=== PATIENT | male | born 1945 | race African-American/Black ===

== ENCOUNTER 2019-07-13 20:51 | Inpatient (IN) | payer MEDICARE, MEDICAID ==
[~2019-07-13] VITALS: Ht 188 cm; Wt 71.4 kg
[2019-07-13 21:00] VITALS: BP 177/76
[2019-07-13] MEDS ORDERED: CARVEDILOL25 MG ORAL (21:15)
[2019-07-13] MEDS ORDERED: ASPIRIN325 MG ORAL (21:15)
[2019-07-13] MEDS ORDERED: ATORVASTATIN CA40 MG ORAL (21:15)
--- NOTE | 2019-07-13 21:15 | NUR ---
ED Nurse Note: Pt brought in by prema from [place] [facility] with c/o SOB with fevers x 1 day. pt denies any pain. temp 98.6 at bedside. vss, nad aaox4, nonambulatory. pt placed in isolation room, gowned and cleaned. no wound noted. pt SpO2 at 98% RA. IV established and blood drawn. covid swab and flu swab collected and sent to lab. urine collected and sent to lab. EKG done at bedside. XR done at bedside. Will continue to monitor patient.
--- NOTE | 2019-07-13 22:01 | Emergency Room Report ---
History of Present Illness General Chief Complaint: Fever Source: Patient, EMS Present Illness HPI 73-year-old male presents ED for evaluation of cough and fever. Noted by nursing staff. Patient resides in senior living facility. Symptoms noticed today. Patient denies any shortness of breath. Afebrile in triage. Patient EMS patient resides in facility with multiple COVID positive patients. No other aggravating relieving factors. Denies any other associated symptoms Allergies: Coded Allergies: No Known Allergies (Unverified , 07/13/19) COVID-19 Screening Contact w/high risk pt: Yes Recent Travel to affected area: No Experienced COVID-19 symptoms?: Yes COVID-19 symptoms experienced: Fever (T>100.4F or >38C), Cough Patient History Pertinent Family History: none Social History: Denies: smoking, alcohol use, drug use Immunizations: UTD Reviewed Nursing Documentation: PMH: Agreed; PSxH: Agreed Nursing Documentation-PMH Hx Cardiac Problems: Yes Hx Hypertension: Yes Hx COPD: Yes Hx Cerebrovascular Accident: Yes Review of Systems All Other Systems: negative except mentioned in HPI Physical Exam Vital Signs Date Time Temp Pulse Resp B/P (MAP) Pulse Ox O2 Delivery O2 Flow Rate FiO2 07/13/19 20:55 97.7 68 18 174/81 (112) 98 Room Air Sp02 EP Interpretation: reviewed, normal General Appearance: no apparent distress, alert, GCS 15, non-toxic, thin Head: normocephalic, atraumatic Eyes: bilateral eye normal inspection, bilateral eye PERRL ENT: hearing grossly normal, normal pharynx, no angioedema, normal voice Neck: full range of motion, supple/symm/no masses Respiratory: chest non-tender, lungs clear, normal breath sounds, speaking full sentences Cardiovascular #1: regular rate, rhythm, no edema Cardiovascular #2: 2+ carotid (R), 2+ carotid (L), 2+ radial (R), 2+ radial (L) , 2+ dorsalis pedis (R), 2+ dorsalis pedis (L) Gastrointestinal: normal bowel sounds, non tender, soft, non-distended, no guarding, no rebound Rectal: deferred Genitourinary: normal inspection, no CVA tenderness Musculoskeletal: back normal, normal range of motion, gait/station normal, non- tender Neurologic: alert, motor strength/tone normal, oriented x3, sensory intact, responsive, speech normal Psychiatric: judgement/insight normal, memory normal, mood/affect normal, no suicidal/homicidal ideation Reflexes: 3+ bicep (R), 3+ bicep (L), 3+ tricep (R), 3+ tricep (L), 3+ knee (R) , 3+ knee (L) Skin: other - see nursing skin notes Lymphatic: no adenopathy Medical Decision Making Diagnostic Impression: Primary Impression: Fever Qualified Codes: R50.9 - Fever, unspecified Additional Impression: Weakness ER Course Hospital Course 73 yo M presents with reported fever, SOB, cough Differential diagnoses include: Pneumonia, CHF exacerbation, pneumothorax, fluid overload Clinical course Patient placed on stretcher. Isolation. I wore full PPE. After initial history and physical, I ordered labs, IV fluids, EKG, chest x-ray, blood cultures, UA. Patient not hypoxic. Not actively coughing. Labs - no leukocytosis, hemoglobin/hematocrit stable, Na 149, lactate 1.6, troponins negative , UA negative EKG - NSr, no acute ischemic changes interpreted by me CXR - no focal consolidation, some venous congestion COVID swab sent Patient resting comfortably on room air. No signs of distress. antibiotics given. IV fluids given. Case discussed with Dr. Rosales and he agreed to the patient to his service for further care and support I feel this is a highly complex case requiring extensive working including EKG/ Rhythm strip, Xray/CT/US, Blood/urine lab work, repeat exams while in ED, and administration of strong opiates/narcotics for pain control, admission to hospital or close patient follow up. Diagnosis - fever, weakness Patient admitted to telemetry in serious condition Labs Test 07/13/19 21:50 White Blood Count 6.9 K/UL (4.8-10.8) Red Blood Count 4.56 M/UL (4.70-6.10) Hemoglobin 14.1 G/DL (14.2-18.0) Hematocrit 43.8 % (42.0-52.0) Mean Corpuscular Volume 96 FL (80-99) Mean Corpuscular Hemoglobin 30.9 PG (27.0-31.0) Mean Corpuscular Hemoglobin Concent 32.2 G/DL (32.0-36.0) Red Cell Distribution Width 14.4 % (11.6-14.8) Platelet Count 170 K/UL (150-450) Mean Platelet Volume 8.8 FL (6.5-10.1) Neutrophils (%) (Auto) 51.5 % (45.0-75.0) Lymphocytes (%) (Auto) 32.3 % (20.0-45.0) Monocytes (%) (Auto) 9.2 % (1.0-10.0) Eosinophils (%) (Auto) 5.1 % (0.0-3.0) Basophils (%) (Auto) 2.0 % (0.0-2.0) Urine Color Yellow Urine Appearance Clear Urine pH 6 (4.5-8.0) Urine Specific [place] 1.020 (1.005-1.035) Urine Protein Negative (NEGATIVE) Urine Glucose (UA) Negative (NEGATIVE) Urine Ketones Negative (NEGATIVE) Urine Blood Negative (NEGATIVE) Urine Nitrite Negative (NEGATIVE) Urine Bilirubin Negative (NEGATIVE) Urine Urobilinogen 1 MG/DL (0.0-1.0) Urine Leukocyte Esterase Negative (NEGATIVE) Sodium Level 149 MMOL/L (136-145) Potassium Level 4.3 MMOL/L (3.5-5.1) Chloride Level 111 MMOL/L (98-107) Carbon Dioxide Level 26 MMOL/L (21-32) Anion Gap 12 mmol/L (5-15) Blood Urea Nitrogen 18 mg/dL (7-18) Creatinine 1.2 MG/DL (0.55-1.30) Estimat Glomerular Filtration Rate > 60 mL/min (>60) Glucose Level 97 MG/DL (74-106) Lactic Acid Level 1.60 mmol/L (0.4-2.0) Calcium Level 9.3 MG/DL (8.5-10.1) Total Bilirubin 0.5 MG/DL (0.2-1.0) Aspartate Amino Transf (AST/SGOT) 37 U/L (15-37) Alanine Aminotransferase (ALT/SGPT) 80 U/L (12-78) Alkaline Phosphatase 119 U/L (46-116) Troponin I 0.007 ng/mL (0.000-0.056) Pro-B-Type Natriuretic Peptide 255 pg/mL (0-125) Total Protein 7.6 G/DL (6.4-8.2) Albumin 3.9 G/DL (3.4-5.0) Globulin 3.7 g/dL Albumin/Globulin Ratio 1.1 (1.0-2.7) EKG Diagnostic Results Rate: normal Rhythm: NSR ST Segments: no acute changes ASA given to the pt in ED: No Rhythm Strip Diag. Results EP Interpretation: yes Rhythm: NSR, no PVC's, no ectopy Chest X-Ray Diagnostic Results Chest X-Ray Diagnostic Results : Chest X-Ray Ordered: Yes # of Views/Limited/Complete: 1 View Indication: Shortness of Breath EP Interpretation: Yes Interpretation: no consolidation, no effusion, no pneumothorax, no acute cardiopulmonary disease - c, other - vascular congestion Impression: No acute disease Electronically Signed by: Electronically signed by Cassius Wong MD Last Vital Signs Date Time Temp Pulse Resp B/P (MAP) Pulse Ox O2 Delivery O2 Flow Rate FiO2 07/13/19 20:55 97.7 68 18 174/81 (112) 98 Room Air Status: improved Disposition: ADMITTED INPATIENT Condition: Serious Referrals: Jaskaran Rosales MD (PCP) Cassius Wong MD Jul 13, 2019 22:01
[2019-07-13 22:02] LABS: APPEARANCE,URINE CLEAR; BILIRUBIN, URINE NEGATIVE (NEGATIVE); GLUCOSE, URINE (UA) NEGATIVE (NEGATIVE); KETONES,URINE NEGATIVE (NEGATIVE); LEUKOCYTE ESTERASE ,URINE NEGATIVE (NEGATIVE); NITRITE,URINE NEGATIVE (NEGATIVE); PH,URINE 6 (4.5-8.0); PROTEIN,URINE NEGATIVE (NEGATIVE); UROBILINOGEN,URINE 1 MG/DL (0.0-1.0)
[2019-07-13 22:03] LABS: EOSINOPHILS % (AUTO) 5.1 % (0.0-3.0); HEMATOCRIT 43.8 % (42.0-52.0); HEMOGLOBIN 14.1 G/DL (14.2-18.0); LYMPHOCYTES % (AUTO) 32.3 % (20.0-45.0); MEAN CORPUSCULAR VOLUME 96 FL (80-99); MONOCYTES % (AUTO) 9.2 % (1.0-10.0); NEUTROPHILS % (AUTO) 51.5 % (45.0-75.0); PLATELET COUNT 170 K/UL (150-450); RED BLOOD COUNT 4.56 M/UL (4.70-6.10); RED CELL DISTRIBUTION WIDTH 14.4 % (11.6-14.8); WHITE BLOOD COUNT 6.9 K/UL (4.8-10.8)
[2019-07-13 22:04] LABS: COLOR,URINE YELLOW
--- NOTE | 2019-07-13 22:06 | Diagnostic Imaging Report ---
EXAM: XR Chest, 1 View CLINICAL HISTORY: SOB TECHNIQUE: Frontal view of the chest. COMPARISON: No relevant prior studies available. FINDINGS: Lungs: No consolidation. Pulmonary venous congestion. Pleural space: No pleural effusion. No pneumothorax. Heart: Unremarkable. No cardiomegaly. IMPRESSION: Pulmonary venous congestion. No consolidation.
[2019-07-13 22:18] LABS: ANION GAP 12 mmol/L (5-15); BLOOD UREA NITROGEN 18 mg/dL (7-18); CALCIUM 9.3 MG/DL (8.5-10.1); CARBON DIOXIDE 26 MMOL/L (21-32); CHLORIDE 111 MMOL/L (98-107); CREATININE 1.2 MG/DL (0.55-1.30); POTASSIUM 4.3 MMOL/L (3.5-5.1); SODIUM 149 MMOL/L (136-145)
[2019-07-13 22:29] LABS: ALANINE AMINOTRANSFERASE 80 U/L (12-78); ALBUMIN 3.9 G/DL (3.4-5.0); ALBUMIN/GLOBULIN RATIO 1.1 (1.0-2.7); ALKALINE PHOSPHATASE 119 U/L (46-116); ASPARTATE AMINO TRANSFERASE 37 U/L (15-37); BILIRUBIN,TOTAL 0.5 MG/DL (0.2-1.0)
[2019-07-13] MEDS ORDERED: Azithromycin 500 MG in NS 275 ML IV ONE (23:15)
[2019-07-13] MEDS ORDERED: Cefepime HCl 1 GM in D5W 55 ML IVPB ONE (23:15)
--- NOTE | 2019-07-13 23:40 | NUR ---
ED Nurse Note: pt bp at 198/87. ermd notified. will carry out order
[2019-07-13 23:45] VITALS: BP 198/87
--- NOTE | 2019-07-13 23:57 | NUR ---
ED Nurse Note: gave report to Dipika RONDON. Endorsed care of plan of patient.
--- NOTE | 2019-07-14 00:10 | NUR ---
TRANSFER TO FLOOR: Patient transferred to [facility] via [place] accompanied by rn and tech via transport 19 protocol in stable condition as ordered, per dr. Rosales. Report given to Dipika RONDON. Belongings sent with patient.
--- NOTE | 2019-07-14 00:15 | NUR ---
Received pt via stretcher from ED. DX R/O Covid 19, SOB, Fever. Received awake and congenial. Confused to time and place. A&OX2 with short term memory confusion. Denies pain.VS 97.0-83-20-100/97 98% RA. Denies nausea. CXR-no consolidation. Breathing regular no signs of labored breathing. Implemented Isolation for Covid 19 per hospital policy.
--- NOTE | 2019-07-14 00:45 | History and Physical Report ---
DATE OF ADMISSION: 07/13/2019 HISTORY OF PRESENT ILLNESS: This is a 73-year-old male, who came to the emergency room for having fever, chills, mild cough, and congestion. Patient denied any chest pain or palpitations. PAST MEDICAL HISTORY: Significant for COPD, CHF, hypertension, hyperlipidemia, and generalized weakness. MEDICATIONS: See the list. ALLERGIES: NKA. FAMILY HISTORY: Noncontributory. SOCIAL HISTORY: Lives at shelter. Mostly sitting on the wheelchair. REVIEW OF SYSTEMS: Generalized weakness, tired, cough, general malaise, and cough with sputum production. PHYSICAL EXAMINATION: VITAL SIGNS: Blood pressure is 130/70, pulse 110, respirations 18 to 24, temperature, no fever. SKIN: Slightly diaphoretic. HEENT: NAD. CHEST: Bilaterally decreased breath sounds with few crackles. CARDIOVASCULAR: Regular rhythm. No gallop. No murmur. Tachycardia. ABDOMEN: Soft. Positive bowel sounds. EXTREMITIES: CCE. NEUROLOGICAL: Generalized weakness. GENITOURINARY: Deferred. LABORATORY DATA: Pending. Chest x-ray is pending. ASSESSMENT: 1. Fever, rule out sepsis. 2. Rule out COVID. 3. Possible pneumonia. 4. Hypertension. 5. History of hyperlipidemia. PLAN: 1. We will admit on telemetry bed. 2. Start IV antibiotics, IV fluid. 3. Rule out COVID. 4. Continue home medications. 5. Regular 2 g sodium diet. 6. Consider Pulmonary and ID consult. Lang Rosales M.D. DR: LEEANNE JOB#: [id number] CC:
--- NOTE | 2019-07-14 05:32 | NUR ---
Daily Nursing Acuity dated for 07/12 @ 0532 corrected date is 07/13 all other factors remaining the same.
--- NOTE | 2019-07-14 07:40 | NUR ---
NURSE NOTES: Received report from NELA Bar. Pt A/Ox2, denies any pain. No s/sx of acute distress, breathing even and unlabored in RA. IV site on R hand patent and asymptomatic. Bed on lowest position, call light within reach. Will continue to monitor.
[2019-07-14 08:00] VITALS: BP 155/80
[2019-07-14] MEDS: Carvedilol 25mg Tab ORAL SCH ×2 (09:35→22:01)
[2019-07-14] MEDS: Cefepime HCl 1 GM in D5W 55 ML IVPB SCH ×2 (09:36→22:00)
[2019-07-14 12:00] VITALS: BP 151/82
--- NOTE | 2019-07-14 13:30 | NUR ---
NURSE NOTES: Called central supply for SCD. Awaiting to be sent to the floor.
--- NOTE | 2019-07-14 14:00 | NUR ---
NURSE NOTES: Tried to call again the central supply for SCDs. No one is answering the call. Unable to left voice message.
--- NOTE | 2019-07-14 16:59 | Consultation ---
DATE OF CONSULTATION: 07/14/2019 INFECTIOUS DISEASES CONSULTATION CONSULTING PHYSICIAN: Nuria Iqbal MD. REFERRING PHYSICIAN: Jaskaran Rosales MD. REASON FOR CONSULTATION: To rule out COVID-19 pneumonia. HISTORY OF PRESENTING ILLNESS: This is a 73-year-old gentleman with history of COPD, CHF, hypertension, hyperlipidemia, who comes in with fever, chills, cough, and shortness of breath. There was a concern for COVID-19 pneumonia and an Infectious Diseases consultation has been obtained for antibiotics. PAST MEDICAL HISTORY: 1. History of COPD. 2. CHF. 3. Hypertension. 4. Hyperlipidemia. SOCIAL HISTORY: He does not smoke, drink, or use drugs. FAMILY HISTORY: Noncontributory. REVIEW OF SYSTEMS: RESPIRATORY: No fever. He has cough. He has shortness of breath. No chest pain. CARDIAC: No chest pain. No palpitation. No dizziness. No syncope. GASTROINTESTINAL: No nausea. No vomiting. No abdominal pain or diarrhea. MEDICATIONS: As an inpatient, he is on cefepime, azithromycin, Lipitor, aspirin, and Coreg. ALLERGIES: No known drug allergies. PHYSICAL EXAMINATION: GENERAL: Deferred due to possibility of COVID. VITAL SIGNS: Temperature of 98.4, T-max of 98.6, pulse of 78, respiratory rate 18, blood pressure 155/80, O2 saturation of 98%. LABORATORY DATA: White count 6.9, hemoglobin 14.1, hematocrit 43.8, MCV 96, platelet count of 170,000; neutrophils of 51%. Sodium 149, potassium 4.3, chloride 111, bicarb 26, BUN 18, creatinine 1.2, glucose 97, calcium 9.3. Total bilirubin 0.5, AST 37, ALT 80, alkaline phosphatase 119. Troponin 0.007. Beta-natriuretic peptide 255. Total protein 7.6, albumin 3.9. UA is negative. Nasal swab was negative for influenza A and B. Chest x-ray is showing pulmonary venous congestion; no consolidation. ASSESSMENT: This is a 73-year-old gentleman with history of hypertension, CHF, COPD, who comes in with cough and shortness of breath and is found to have: 1. Possible pneumonia. We would like to rule out COVID-19 as a possibility. 2. CHF. 3. Hypertension. 4. COPD. PLAN: 1. Continue cefepime for now. 2. Discontinue azithromycin. 3. Continue isolation. 4. We will follow up the patient clinically. I would like to thank, Dr. Rosales, for this consultation. Nuria Iqbal M.D. DR: Paulina JOB#: [id number] CC: Jaskaran Rosales MD; Fax#: [phone]
--- NOTE | 2019-07-14 19:26 | NUR ---
HAND-OFF: Report given to NELA Bar. Pt in stable condition, endorsed plan of care.
[2019-07-14 20:00] VITALS: BP 128/72
--- NOTE | 2019-07-14 21:29 | Consultation ---
DATE OF CONSULTATION: 07/14/2019 PULMONARY CONSULTATION HISTORY OF PRESENT ILLNESS: This is a 73-year-old male who is a assisted resident. He is a assisted resident for many years. He was sent in because he was having shortness of breath. However, he was afebrile. The patient also reported a cough. The patient has been a resident at the facility that has multiple COVID-19 positive patients. PAST MEDICAL HISTORY: Notable for COPD, hypertension, history of unspecified cardiac disease as well as previous CVA. MEDICATIONS: List of home medications and current medications include azithromycin, cefepime, aspirin, Lipitor, Coreg. PAST SURGICAL HISTORY: None. REVIEW OF SYSTEMS: Denies any headaches, hematemesis, melena, hematochezia, night sweats, weight loss. PHYSICAL EXAMINATION: GENERAL: Reveals a 73-year-old male. VITAL SIGNS: O2 saturation 98% on room air, blood pressure 150/80, heart rate 74, afebrile. CHEST: Clear breath sounds bilaterally. ABDOMEN: Soft. EXTREMITIES: There is no edema. NEUROLOGIC: Nonfocal. LABORATORY DATA: Lab testing shows normal CBC and BMP with a sodium 149, alkaline phosphatase 119, ALT 80. Urinalysis negative. Influenza A and B nasal swab is negative. IMAGING STUDIES: X-ray chest obtained, which shows mild pulmonary vascular congestion. There are no definite infiltrates noted. IMPRESSION: 1. High suspicion for COVID-19. 2. Normoxemia with normal chest x-ray. 3. COPD. 4. Hypertension. 5. Previous CVA. DISCUSSION: At this time, the patient is doing fairly well and does not need oxygen. Agree with empiric antibiotics as per ID. Continue home medications. I will discontinue fluids as the patient is on a normal diet. Hold off on azithromycin or Plaquenil. 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 Aston Jensen M.D. DR: Becca JOB#: [id number] CC:
[2019-07-14] MEDS: Atorvastatin 20mg tab ORAL SCH (22:01)
[2019-07-14] MEDS ORDERED: Azithromycin 500 MG in D5W 275 ML IV SCH (23:00)
[2019-07-15] VITALS: BP 131/74
--- NOTE | 2019-07-15 00:45 | Progress Note ---
DATE: 07/14/2019 SUBJECTIVE: A 73-year-old male who came to the emergency room for short of breath, fever, and to rule out COVID. The patient is currently in the bed, feeling generalized weakness and chills, but fever has subsided this morning. PHYSICAL EXAMINATION: VITAL SIGNS: Blood pressure is 130/70, pulse 74 and respirations 18. HEENT: NAD. CHEST: Bilaterally clear. CARDIOVASCULAR: Regular rhythm. ABDOMEN: Soft. EXTREMITIES: No edema. GENITOURINARY: Deferred. He is currently Full Code. LABORATORY DATA: As stated earlier yesterday. ASSESSMENT: 1. Fever, rule out of sepsis. 2. History of hypertension. 3. Generalized weakness. 4. Rule out COVID. PLAN: The patient is on telebed and waiting for COVID test. Continue IV antibiotic bronchodilator treatments, IV fluid and discussed with charge nurse. Lang Rosales M.D. DR: Lisa JOB#: [id number] CC:
--- NOTE | 2019-07-15 07:40 | NUR ---
NURSE NOTES: Received report from NELA Bearden. Observed pt sleeping, no s/sx of acute distress. Breathing evena Addendum: 07/15/19 at 1811 by Natalia Freeman RN even and unlabored in RA. Bed on lowest position, call light within reach. Will continue to monitor.
[2019-07-15 08:00] VITALS: BP 165/93
[2019-07-15] MEDS: Cefepime HCl 1 GM in D5W 55 ML IVPB SCH (09:33)
[2019-07-15] MEDS: Carvedilol 25mg Tab ORAL SCH (09:33)
--- NOTE | 2019-07-15 10:25 | Pulmonology Progress Note ---
Assessment/Plan Assessment/Plan IMPRESSION: 1. High suspicion for COVID-19. Results pending 2. Normoxemia with normal chest x-ray. 3. COPD. 4. Hypertension. 5. Previous CVA. DISCUSSION: At this time, the patient is doing fairly well and does not need oxygen. Agree with empiric antibiotics as per ID. Continue home medications. I will discontinue fluids as the patient is on a normal diet. Hold off on azithromycin or Plaquenil. 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 Aston Jensen M.D. Subjective Interval Events: pcr still pending Constitutional: Reports: no symptoms HEENT: Repors: no symptoms Respiratory: Reports: no symptoms Cardiovascular: Reports: no symptoms Gastrointestinal/Abdominal: Reports: no symptoms Allergies: Coded Allergies: No Known Allergies (Unverified , 07/13/19) Objective Last 24 Hour Vital Signs Date Time Temp Pulse Resp B/P (MAP) Pulse Ox O2 Delivery O2 Flow Rate FiO2 07/15/19 09:33 70 165/93 07/15/19 08:00 97.7 70 18 165/93 (117) 96 07/15/19 07:21 55 07/15/19 04:00 69 07/15/19 00:00 98.9 81 20 131/74 (93) 07/15/19 00:00 57 07/14/19 22:01 77 128/72 07/14/19 21:00 Room Air 07/14/19 20:00 98.9 77 20 128/72 (90) 07/14/19 15:28 50 07/14/19 12:00 97.0 68 18 151/82 (105) 98 07/14/19 11:27 58 Intake and Output 07/14/19 07/15/19 19:00 07:00 Intake Total 720 ml 240 ml Output Total 200 ml Balance 720 ml 40 ml Intake Oral 720 ml 240 ml Output Urine Total 200 ml # Voids 4 1 General Appearance: no acute distress HEENT: normocephalic Respiratory/Chest: chest wall non-tender, lungs clear Cardiovascular: normal peripheral pulses Abdomen: normal bowel sounds Microbiology Date/Time Source Procedure Growth Status 4/17/20 21:50 Blood Blood Culture - Preliminary NO GROWTH AFTER 24 HOURS Resulted 07/13/19 21:35 Blood Blood Culture - Preliminary NO GROWTH AFTER 24 HOURS Resulted 07/13/19 21:50 Nasal Nares - Final Complete 07/13/19 21:50 Nasal Nares - Final Complete 07/13/19 21:50 Rectum Received Current Medications Medications (Trade) Dose Ordered Sig/Beckie Route PRN Reason Start Time Stop Time Status Last Admin Dose Admin Aspirin (ASA) 325 mg DAILY ORAL 07/14/19 09:00 08/28/19 08:59 07/15/19 09:33 Atorvastatin Calcium (Lipitor) 40 mg BEDTIME ORAL 07/14/19 21:00 10/12/19 20:59 07/14/19 22:01 Carvedilol (Coreg) 25 mg EVERY 12 HOURS ORAL 07/14/19 09:00 08/13/19 08:59 07/15/19 09:33 Cefepime HCl 1 gm/ Dextrose 55 ml @ 110 mls/hr EVERY 12 HOURS IVPB 07/14/19 09:00 07/21/19 08:59 07/15/19 09:33 Aston Jensen MD Jul 15, 2019 10:25
[2019-07-15 12:00] VITALS: BP 160/67
--- NOTE | 2019-07-15 13:00 | NUR ---
NURSE NOTES: Informed Dr Rosales that pt BP is always elevated. Dr ordered to double the dose of carvedilol from 25mg to 50mg.
--- NOTE | 2019-07-15 13:21 | Infectious Diseases Prog Note ---
Assessment/Plan Assessment/Plan A; 1. Possible pneumonia. We would like to rule out COVID19 2. CHF. 3. Hypertension. 4. COPD. PLAN: 1. Continue cefepime for now. 2. Continue isolation. Subjective ROS Limited/Unobtainable: No Respiratory: Reports: no symptoms Cardiovascular: Reports: no symptoms Gastrointestinal/Abdominal: Reports: no symptoms Genitourinary: Reports: no symptoms Allergies: Coded Allergies: No Known Allergies (Unverified , 07/13/19) Objective Vital Signs Last 24 Hour Vital Signs Date Time Temp Pulse Resp B/P (MAP) Pulse Ox O2 Delivery O2 Flow Rate FiO2 07/15/19 12:00 98.7 60 20 160/67 (98) 98 07/15/19 11:35 49 07/15/19 09:33 70 165/93 07/15/19 09:00 Room Air 07/15/19 08:00 97.7 70 18 165/93 (117) 96 07/15/19 07:21 55 07/15/19 04:00 69 07/15/19 00:00 98.9 81 20 131/74 (93) 07/15/19 00:00 57 07/14/19 22:01 77 128/72 07/14/19 21:00 Room Air 07/14/19 20:00 98.9 77 20 128/72 (90) 07/14/19 15:28 50 Height (Feet): 6 Height (Inches): 2.00 Weight (Pounds): 158 General Appearance: no acute distress HEENT: mucous membranes moist Respiratory/Chest: lungs clear Cardiovascular: normal rate Abdomen: soft, non tender Extremities: no edema Neurologic/Psychiatric: alert, responsive Microbiology Date/Time Source Procedure Growth Status 07/13/19 21:50 Blood Blood Culture - Preliminary NO GROWTH AFTER 24 HOURS Resulted 07/13/19 21:35 Blood Blood Culture - Preliminary NO GROWTH AFTER 24 HOURS Resulted 07/13/19 21:50 Nasal Nares - Final Complete 07/13/19 21:50 Nasal Nares - Final Complete 07/13/19 21:50 Rectum Received Current Medications Medications (Trade) Dose Ordered Sig/Beckie Route PRN Reason Start Time Stop Time Status Last Admin Dose Admin Aspirin (ASA) 325 mg DAILY ORAL 07/14/19 09:00 08/28/19 08:59 07/15/19 09:33 Atorvastatin Calcium (Lipitor) 40 mg BEDTIME ORAL 07/14/19 21:00 10/12/19 20:59 07/14/19 22:01 Carvedilol (Coreg) 50 mg EVERY 12 HOURS ORAL 07/15/19 21:00 08/14/19 20:59 Cefepime HCl 1 gm/ Dextrose 55 ml @ 110 mls/hr EVERY 12 HOURS IVPB 07/14/19 09:00 07/21/19 08:59 07/15/19 09:33 Vineet Farley MD Jul 15, 2019 13:21
--- NOTE | 2019-07-15 19:37 | NUR ---
HAND-OFF: Report given to NELA Saini. Pt in stable condition, endorsed plan of care.
[2019-07-15] MEDS ORDERED: Carvedilol 25mg Tab ORAL SCH (21:00)
[2019-07-16] MEDS: Cefepime HCl 1 GM in D5W 55 ML IVPB SCH ×3 (00:53→23:04)
[2019-07-16] MEDS: Carvedilol 25mg Tab ORAL SCH ×3 (01:04→23:05)
[2019-07-16] MEDS: Atorvastatin 20mg tab ORAL SCH ×2 (01:05→23:03)
--- NOTE | 2019-07-16 03:45 | Progress Note ---
DATE: 07/15/2019 SUBJECTIVE: This is a 73-year-old male who came to the emergency room for having recurrent fever, cough, short of breath, and rule out COVID. The patient physically is doing better. His fever is subsided. PHYSICAL EXAMINATION: VITAL SIGNS: Blood pressure is 130/70, pulse 74, respirations 18. HEENT: NAD. CHEST: Bilaterally clear. CARDIOVASCULAR: Regular rhythm. No gallop. No murmur. ABDOMEN: Soft. EXTREMITIES: CCE. NEUROLOGICAL: No focal deficit. ASSESSMENT: 1. Pneumonia. 2. Rule out COVID. 3. Hypertension. 4. Depression. PLAN: We will admit on a telemetry bed. Continue antibiotics and waiting for COVID results and continue supportive treatment, jyoti Otoole. Lang Rosales M.D. DR: KAREEM JOB#: [id number] CC:
[2019-07-16 08:00] VITALS: BP 143/78
[2019-07-16 10:06] LABS: BASOPHILS % (AUTO) 1.3 % (0.0-2.0); EOSINOPHILS % (AUTO) 6.1 % (0.0-3.0); HEMATOCRIT 41.1 % (42.0-52.0); HEMOGLOBIN 14.3 G/DL (14.2-18.0); MEAN CORPUSCULAR VOLUME 89 FL (80-99); MONOCYTES % (AUTO) 11.1 % (1.0-10.0); NEUTROPHILS % (AUTO) 53.5 % (45.0-75.0); PLATELET COUNT 165 K/UL (150-450); RED CELL DISTRIBUTION WIDTH 11.8 % (11.6-14.8); WHITE BLOOD COUNT 5.9 K/UL (4.8-10.8)
[2019-07-16 10:22] LABS: ANION GAP 10 mmol/L (5-15); BLOOD UREA NITROGEN 14 mg/dL (7-18); CALCIUM 8.9 MG/DL (8.5-10.1); CARBON DIOXIDE 24 MMOL/L (21-32); CHLORIDE 112 MMOL/L (98-107); POTASSIUM 3.7 MMOL/L (3.5-5.1); SODIUM 146 MMOL/L (136-145)
--- NOTE | 2019-07-16 10:28 | Pulmonology Progress Note ---
Assessment/Plan Assessment/Plan IMPRESSION: 1. High suspicion for COVID-19. Results pending 2. Normoxemia with normal chest x-ray. 3. COPD. 4. Hypertension. 5. Previous CVA. DISCUSSION: At this time, the patient is doing fairly well and does not need oxygen. Agree with empiric antibiotics as per ID. Continue home medications. I will discontinue fluids as the patient is on a normal diet. Hold off on azithromycin or Plaquenil. I will follow as digital archivist. Aston Jensen M.D. Subjective Interval Events: None new Constitutional: Reports: no symptoms HEENT: Repors: no symptoms Respiratory: Reports: no symptoms Cardiovascular: Reports: no symptoms Allergies: Coded Allergies: No Known Allergies (Unverified , 07/13/19) Objective Last 24 Hour Vital Signs Date Time Temp Pulse Resp B/P (MAP) Pulse Ox O2 Delivery O2 Flow Rate FiO2 07/16/19 10:01 54 143/78 07/16/19 01:04 73 154/61 07/15/19 15:11 49 07/15/19 12:00 98.7 60 20 160/67 (98) 98 07/15/19 11:35 49 Intake and Output 07/15/19 07/16/19 19:00 07:00 Intake Total 600 ml Balance 600 ml Intake Oral 600 ml # Voids 4 2 General Appearance: no acute distress HEENT: normocephalic Respiratory/Chest: chest wall non-tender, lungs clear Cardiovascular: normal peripheral pulses, normal rate Abdomen: normal bowel sounds Microbiology Date/Time Source Procedure Growth Status 07/13/19 21:50 Blood Blood Culture - Preliminary NO GROWTH AFTER 48 HOURS Resulted 07/13/19 21:35 Blood Blood Culture - Preliminary NO GROWTH AFTER 48 HOURS Resulted 07/13/19 21:50 Nasal Nares MRSA Culture - Final NO METHICILLIN RESISTANT STAPH AUREUS... Complete 07/13/19 21:50 Nasal Nares - Final Complete 07/13/19 21:50 Nasal Nares - Final Complete 07/13/19 21:50 Rectum VRE Culture - Final NO VANCOMYCIN RESISTANT ENTEROCOCCUS ... Complete 07/13/19 21:50 Rectum - Final NO CARBAPENEM-RESISTANT ENTEROBACTERI... Complete Laboratory Tests 07/16/19 09:45: White Blood Count 5.9, Red Blood Count 4.60L, Hemoglobin 14.3, Hematocrit 41.1L , Mean Corpuscular Volume 89, Mean Corpuscular Hemoglobin 31.2H, Mean Corpuscular Hemoglobin Concent 34.9, Red Cell Distribution Width 11.8, Platelet Count 165, Mean Platelet Volume 7.3, Neutrophils (%) (Auto) 53.5, Lymphocytes (% ) (Auto) 28.0, Monocytes (%) (Auto) 11.1H, Eosinophils (%) (Auto) 6.1H, Basophils (%) (Auto) 1.3, Sodium Level [Pending], Potassium Level [Pending], Chloride Level [Pending], Carbon Dioxide Level [Pending], Blood Urea Nitrogen [ Pending], Creatinine [Pending], Estimat Glomerular Filtration Rate [Pending], Glucose Level [Pending], Calcium Level [Pending] Current Medications Medications (Trade) Dose Ordered Sig/Beckie Route PRN Reason Start Time Stop Time Status Last Admin Dose Admin Aspirin (ASA) 325 mg DAILY ORAL 07/14/19 09:00 08/28/19 08:59 07/16/19 10:01 Atorvastatin Calcium (Lipitor) 40 mg BEDTIME ORAL 07/14/19 21:00 10/12/19 20:59 07/16/19 01:05 Carvedilol (Coreg) 50 mg EVERY 12 HOURS ORAL 07/15/19 21:00 08/14/19 20:59 07/16/19 10:01 Cefepime HCl 1 gm/ Dextrose 55 ml @ 110 mls/hr EVERY 12 HOURS IVPB 07/14/19 09:00 07/21/19 08:59 07/16/19 10:02 Aston Jensen MD Jul 16, 2019 10:28
--- NOTE | 2019-07-16 10:44 | Infectious Diseases Prog Note ---
Assessment/Plan Assessment/Plan antibiotics : cefepime A 1. pneumonia rule out COVID-19 as a possibility. 2. CHF. 3. Hypertension. 4. COPD. P 1. continue cefepime 2. continue isolation 3. will follow up cultures Subjective ROS Limited/Unobtainable: Yes Allergies: Coded Allergies: No Known Allergies (Unverified , 07/13/19) Objective Vital Signs Last 24 Hour Vital Signs Date Time Temp Pulse Resp B/P (MAP) Pulse Ox O2 Delivery O2 Flow Rate FiO2 07/16/19 10:01 54 143/78 07/16/19 01:04 73 154/61 07/15/19 15:11 49 07/15/19 12:00 98.7 60 20 160/67 (98) 98 07/15/19 11:35 49 Height (Feet): 6 Height (Inches): 2.00 Weight (Pounds): 158 Microbiology Date/Time Source Procedure Growth Status 07/13/19 21:50 Blood Blood Culture - Preliminary NO GROWTH AFTER 48 HOURS Resulted 07/13/19 21:35 Blood Blood Culture - Preliminary NO GROWTH AFTER 48 HOURS Resulted 07/13/19 21:50 Nasal Nares MRSA Culture - Final NO METHICILLIN RESISTANT STAPH AUREUS... Complete 07/13/19 21:50 Nasal Nares - Final Complete 07/13/19 21:50 Nasal Nares - Final Complete 07/13/19 21:50 Rectum VRE Culture - Final NO VANCOMYCIN RESISTANT ENTEROCOCCUS ... Complete 07/13/19 21:50 Rectum - Final NO CARBAPENEM-RESISTANT ENTEROBACTERI... Complete Laboratory Tests Test 07/16/19 09:45 White Blood Count 5.9 K/UL (4.8-10.8) Red Blood Count 4.60 M/UL (4.70-6.10) L Hemoglobin 14.3 G/DL (14.2-18.0) Hematocrit 41.1 % (42.0-52.0) L Mean Corpuscular Volume 89 FL (80-99) Mean Corpuscular Hemoglobin 31.2 PG (27.0-31.0) H Mean Corpuscular Hemoglobin Concent 34.9 G/DL (32.0-36.0) Red Cell Distribution Width 11.8 % (11.6-14.8) Platelet Count 165 K/UL (150-450) Mean Platelet Volume 7.3 FL (6.5-10.1) Neutrophils (%) (Auto) 53.5 % (45.0-75.0) Lymphocytes (%) (Auto) 28.0 % (20.0-45.0) Monocytes (%) (Auto) 11.1 % (1.0-10.0) H Eosinophils (%) (Auto) 6.1 % (0.0-3.0) H Basophils (%) (Auto) 1.3 % (0.0-2.0) Sodium Level 146 MMOL/L (136-145) H Potassium Level 3.7 MMOL/L (3.5-5.1) Chloride Level 112 MMOL/L (98-107) H Carbon Dioxide Level 24 MMOL/L (21-32) Anion Gap 10 mmol/L (5-15) Blood Urea Nitrogen 14 mg/dL (7-18) Creatinine 1.0 MG/DL (0.55-1.30) Estimat Glomerular Filtration Rate > 60 mL/min (>60) Glucose Level 94 MG/DL (74-106) Calcium Level 8.9 MG/DL (8.5-10.1) Current Medications Medications (Trade) Dose Ordered Sig/Beckie Route PRN Reason Start Time Stop Time Status Last Admin Dose Admin Aspirin (ASA) 325 mg DAILY ORAL 07/14/19 09:00 08/28/19 08:59 07/16/19 10:01 Atorvastatin Calcium (Lipitor) 40 mg BEDTIME ORAL 07/14/19 21:00 10/12/19 20:59 07/16/19 01:05 Carvedilol (Coreg) 50 mg EVERY 12 HOURS ORAL 07/15/19 21:00 08/14/19 20:59 07/16/19 10:01 Cefepime HCl 1 gm/ Dextrose 55 ml @ 110 mls/hr EVERY 12 HOURS IVPB 07/14/19 09:00 07/21/19 08:59 07/16/19 10:02 Nuria Iqbal MD Jul 16, 2019 10:44
[2019-07-16 12:00] VITALS: BP 155/81
--- NOTE | 2019-07-16 12:23 | NUR ---
CASE MANAGEMENT:REVIEW 73 YR OLD MALE BIBA FROM [facility] CC: FEVER AND SOB SI:FEVER. WEAKNESS. POSSIBLE COVID 19 PNA 97.7 68 18 174/81 98% ON RA NA+149 IS: IV AZITHROMYCIN IV HYDRALAZINE IV CEFEPIME 500CC NS BOLUS COVID 19 : TO TELEMETRY DCP: FROM [facility] PLAN: F/U ON COVID 19
--- NOTE | 2019-07-16 15:02 | NUR ---
DISCHARGE PLANNING ANTICIPATING DISCHARGE TOMORROW CALLED SNF AND SPOKE WITH MEDICAL ANTHROPOLOGY DIRECTOR Lizeth JAMA FAXED CLINICALS TO [facility] T: [phone] F: [phone]
[2019-07-16 16:00] VITALS: BP 136/95
[2019-07-16 20:00] VITALS: BP 130/76
--- NOTE | 2019-07-16 20:30 | NUR ---
HAND-OFF: Report given to Brando/NELA, pt in stable condition, Endorsed to RN pt attempts to get up and he has unsteady walk. Pt has been educated on how to use call light to get assistance from Rn
[2019-07-17] VITALS: BP 132/69
--- NOTE | 2019-07-17 01:00 | Progress Note ---
DATE: 07/16/2019 SUBJECTIVE: This is a 73-year-old male, who is currently awake and is in bed, comfortable, short of breath. His fever has subsided. The patient has no cough. OBJECTIVE: VITAL SIGNS: Blood pressure is 130/70, pulse 74, respirations 18 to 24. Temperature, no fever. SKIN: Good skin turgor. HEENT: NAD. CHEST: Bilaterally clear. CARDIOVASCULAR: Regular rhythm. No gallop. No murmur. ABDOMEN: Soft. Positive bowel sounds. Nontender. EXTREMITIES: No edema. GENITOURINARY: Deferred. LABORATORY DATA: The patient has no labs today. ASSESSMENT/PLAN: 1. Fever, rule out sepsis. 2. Rule out COVID. 3. Hypertension. 4. Dehydration. PLAN: We will currently continue antibiotic, discontinue intravenous fluids. Check cultures. Waiting for COVID results. Lagn Rosales M.D. DR: SIDRA JOB#: [id number] CC:
[2019-07-17 04:00] VITALS: BP 145/80
--- NOTE | 2019-07-17 07:55 | NUR ---
NURSE NOTES: Recvd pt. Pt is AOx3, pt is on room air with no sign of sob. IV is c/d/i. Bed in lowest locked position, will continue with plan if care
[2019-07-17 08:00] VITALS: BP 160/90
[2019-07-17] MEDS: Cefepime HCl 1 GM in D5W 55 ML IVPB SCH ×2 (09:13→20:18)
[2019-07-17] MEDS: Carvedilol 25mg Tab ORAL SCH ×2 (09:15→20:18)
--- NOTE | 2019-07-17 10:25 | NUR ---
DISCHARGE PLANNING DISCHARGE PLAN DISCUSSED WITH DR ZHENG DISCHARGE ORDER RECEIVED AND ENTERED EMBEDDED SOFTWARE ARCHITECT IS WAITING FOR ASSIGNED ROOM NUMBER AT [facility] AFTER WHICH SHE WILL COORDINATE THE TRANSFER TO [facility]
--- NOTE | 2019-07-17 11:04 | Infectious Diseases Prog Note ---
Assessment/Plan Assessment/Plan antibiotics : cefepime A 1. pneumonia COVID-19 negative 2. CHF. 3. Hypertension. 4. COPD. P 1. continue cefepime 2. d/c isolation 3. will follow up cultures Subjective Constitutional: Denies: fever, chills Respiratory: Denies: shortness of breath, dry cough Gastrointestinal/Abdominal: Denies: nausea, vomiting, diarrhea Musculoskeletal: Denies: pain Allergies: Coded Allergies: No Known Allergies (Unverified , 07/13/19) Objective Vital Signs Last 24 Hour Vital Signs Date Time Temp Pulse Resp B/P (MAP) Pulse Ox O2 Delivery O2 Flow Rate FiO2 07/17/19 09:15 64 160/90 07/17/19 08:00 97.3 57 19 160/90 (113) 97 07/17/19 04:00 73 07/17/19 04:00 97.9 61 16 145/80 (101) 96 07/17/19 00:00 59 07/17/19 00:00 98.0 67 17 132/69 (90) 96 07/16/19 23:05 63 130/76 07/16/19 21:00 Room Air 07/16/19 20:00 52 07/16/19 20:00 97.7 63 15 130/76 (94) 96 07/16/19 16:00 50 07/16/19 16:00 98.1 67 20 136/95 (109) 96 07/16/19 12:00 97.5 59 20 155/81 (105) 98 07/16/19 12:00 64 Height (Feet): 6 Height (Inches): 2.00 Weight (Pounds): 158 Current Medications Medications (Trade) Dose Ordered Sig/Beckie Route PRN Reason Start Time Stop Time Status Last Admin Dose Admin Aspirin (ASA) 325 mg DAILY ORAL 07/14/19 09:00 08/28/19 08:59 07/17/19 09:15 Atorvastatin Calcium (Lipitor) 40 mg BEDTIME ORAL 07/14/19 21:00 10/12/19 20:59 07/16/19 23:03 Carvedilol (Coreg) 50 mg EVERY 12 HOURS ORAL 07/15/19 21:00 08/14/19 20:59 07/17/19 09:15 Cefepime HCl 1 gm/ Dextrose 55 ml @ 110 mls/hr EVERY 12 HOURS IVPB 07/14/19 09:00 07/21/19 08:59 07/17/19 09:13 Nuria Iqbal MD Jul 17, 2019 11:04
--- NOTE | 2019-07-17 11:17 | Pulmonology Progress Note ---
Assessment/Plan Assessment/Plan IMPRESSION: 1. High suspicion for COVID-19. Results negative x 1. 2. Normoxemia with normal chest x-ray. 3. COPD. 4. Hypertension. 5. Previous CVA. DISCUSSION: At this time, the patient is doing fairly well and does not need oxygen. Agree with empiric antibiotics as per ID. Continue home medications. Hold off on azithromycin or Plaquenil. 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 Send second COVID 19 pcr? Aston Jensen M.D. Subjective Interval Events: None new reproted Constitutional: Reports: no symptoms Respiratory: Reports: no symptoms Cardiovascular: Reports: no symptoms Gastrointestinal/Abdominal: Reports: no symptoms Allergies: Coded Allergies: No Known Allergies (Unverified , 07/13/19) Objective Last 24 Hour Vital Signs Date Time Temp Pulse Resp B/P (MAP) Pulse Ox O2 Delivery O2 Flow Rate FiO2 07/17/19 09:15 64 160/90 07/17/19 08:00 97.3 57 19 160/90 (113) 97 07/17/19 04:00 73 07/17/19 04:00 97.9 61 16 145/80 (101) 96 07/17/19 00:00 59 07/17/19 00:00 98.0 67 17 132/69 (90) 96 07/16/19 23:05 63 130/76 07/16/19 21:00 Room Air 07/16/19 20:00 52 07/16/19 20:00 97.7 63 15 130/76 (94) 96 07/16/19 16:00 50 07/16/19 16:00 98.1 67 20 136/95 (109) 96 07/16/19 12:00 97.5 59 20 155/81 (105) 98 07/16/19 12:00 64 Intake and Output 07/16/19 07/17/19 19:00 07:00 Intake Total 700 ml Output Total 400 ml Balance 700 ml -400 ml Intake Oral 700 ml Output Urine Total 400 ml # Voids 3 2 # Bowel Movements 2 General Appearance: no acute distress HEENT: normocephalic Respiratory/Chest: chest wall non-tender, lungs clear Cardiovascular: normal peripheral pulses Abdomen: normal bowel sounds Current Medications Medications (Trade) Dose Ordered Sig/Beckie Route PRN Reason Start Time Stop Time Status Last Admin Dose Admin Aspirin (ASA) 325 mg DAILY ORAL 07/14/19 09:00 08/28/19 08:59 07/17/19 09:15 Atorvastatin Calcium (Lipitor) 40 mg BEDTIME ORAL 07/14/19 21:00 10/12/19 20:59 07/16/19 23:03 Carvedilol (Coreg) 50 mg EVERY 12 HOURS ORAL 07/15/19 21:00 08/14/19 20:59 07/17/19 09:15 Cefepime HCl 1 gm/ Dextrose 55 ml @ 110 mls/hr EVERY 12 HOURS IVPB 07/14/19 09:00 07/21/19 08:59 07/17/19 09:13 Aston Jensen MD Jul 17, 2019 11:17
--- NOTE | 2019-07-17 11:29 | NUR ---
*-*DISCHARGE PLANNED*-* PATIENT HAS BEEN ACCEPTED AND WILL BE DISCHARGED BACK TO: [facility] P:[phone] ROOM# OBSERVATION ROOM. [facility] SET FOR 12:30PM S/W [facility] [id number] PLACED A CALL TO PATIENTS FANTA CARTER, WHO IS IN AGREEMENT TO DISCHARGE PLAN. Addendum: 07/17/19 at 1148 by BAKARI CALHOUN CM PATIENT HAS BEEN ACCEPTED AND WILL BE DISCHARGED BACK TO: [facility] P:[phone] ROOM# OBSERVATION ROOM. [facility]ED [facility] SET FOR WILL CALL S/W [facility] [id number] PLACED A CALL TO PATIENTS FANTA CARTER, WHO IS IN AGREEMENT TO DISCHARGE PLAN.
[2019-07-17 12:00] VITALS: BP 134/76
--- NOTE | 2019-07-17 15:00 | NUR ---
NURSE NOTES: Pt was re-swab for 2nd time. Pt was negative today 07/16
[2019-07-17 16:00] VITALS: BP 140/82
--- NOTE | 2019-07-17 19:41 | NUR ---
NURSE NOTES: Pt received from NELA Bojorquez alert and oriented x3 with no acute s/s of distress noted. IV site asymptomatic and patent on R hand 20g, saline lock. Bed in lowest position, call light and belongings within reach.
[2019-07-17 20:00] VITALS: BP 145/70
[2019-07-17] MEDS: Atorvastatin 20mg tab ORAL SCH (20:18)
--- NOTE | 2019-07-17 22:59 | Discharge Summary ---
DATE OF ADMISSION: 07/13/2019 DATE OF DISCHARGE: 07/17/2019 PROGRESS NOTE/DISCHARGE SUMMARY SUBJECTIVE: This is a 73-year-old male came with fever, sepsis, short of breath, rule out COVID. The patient was admitted on medical floor and his COVID test is negative. The patient is physically doing better. Fever is subsided. Shortness of breath is improving. PHYSICAL EXAMINATION: VITAL SIGNS: Blood pressure is 140/90, pulse 74, respirations 18. HEENT: NAD. CHEST: Bilaterally clear. CARDIOVASCULAR: Regular rhythm. ABDOMEN: Soft. EXTREMITIES: CCE. NEUROLOGICAL: No focal deficit. ASSESSMENT: 1. Fever, rule out sepsis. The patient's cultures so far negative. 2. COVID negative. 3. Hypertension. 4. Depression. PLAN: 1. We will currently discontinue antibiotic. 2. Discharge plan to senior living. 3. Continue home medications. 4. Continue bronchodilator treatments. DIET: A 2 grams sodium diet. ACTIVITY: As tolerated. DISCHARGE MEDICATIONS: Continue senior living medications. He does not need any antibiotics. Oxygen as needed. Continue bronchodilator treatments if needed. Lang Rosales M.D. DR: Juan JOB#: [id number] CC:
[2019-07-18] VITALS (7 sets, daily range): BP systolic 113–149; BP diastolic 63–75
--- NOTE | 2019-07-18 07:35 | NUR ---
NURSE NOTES: pt in bed resting. Aox2 just had breakfast and used bathroom . Pt is not complaining of pain. Pt on air sampling and monitoring, no signs of cardiac or respiratory distress at this time. Bed in lowest position and locked. Call light within reach, bed side rails up. Will continue to monitor pt, waiting for second Covid test result.
--- NOTE | 2019-07-18 07:35 | NUR ---
HAND-OFF: Report given to NELA Hernández. Plan of care endorsed.
[2019-07-18] MEDS: Carvedilol 25mg Tab ORAL SCH ×2 (10:08→21:47)
[2019-07-18] MEDS: Cefepime HCl 1 GM in D5W 55 ML IVPB SCH ×2 (10:12→21:00)
--- NOTE | 2019-07-18 10:14 | Infectious Diseases Prog Note ---
Assessment/Plan Assessment/Plan antibiotics : cefepime A 1. pneumonia COVID-19 negative 2. CHF. 3. Hypertension. 4. COPD. P 1. continue cefepime 1 more day 2. d/c isolation 3. will follow up cultures Subjective ROS Limited/Unobtainable: Yes Allergies: Coded Allergies: No Known Allergies (Unverified , 07/13/19) Objective Vital Signs Last 24 Hour Vital Signs Date Time Temp Pulse Resp B/P (MAP) Pulse Ox O2 Delivery O2 Flow Rate FiO2 07/18/19 10:08 93 126/70 07/18/19 10:02 Room Air 07/18/19 09:00 97.5 93 20 126/70 (88) 95 07/18/19 04:00 97.9 60 16 113/75 (88) 97 07/18/19 04:00 49 07/18/19 00:00 97.7 61 17 135/73 (93) 97 07/18/19 00:00 64 07/17/19 21:00 Room Air 07/17/19 20:18 64 135/74 07/17/19 20:00 59 07/17/19 20:00 96.8 64 17 145/70 (95) 97 07/17/19 16:00 55 07/17/19 16:00 97.2 68 17 140/82 (101) 97 07/17/19 12:00 54 07/17/19 12:00 96.8 69 18 134/76 (95) 98 Height (Feet): 6 Height (Inches): 2.00 Weight (Pounds): 157 Current Medications Medications (Trade) Dose Ordered Sig/Beckie Route PRN Reason Start Time Stop Time Status Last Admin Dose Admin Aspirin (ASA) 325 mg DAILY ORAL 07/14/19 09:00 08/28/19 08:59 07/18/19 10:08 Atorvastatin Calcium (Lipitor) 40 mg BEDTIME ORAL 07/14/19 21:00 10/12/19 20:59 07/17/19 20:18 Carvedilol (Coreg) 50 mg EVERY 12 HOURS ORAL 07/15/19 21:00 08/14/19 20:59 07/18/19 10:08 Cefepime HCl 1 gm/ Dextrose 55 ml @ 110 mls/hr EVERY 12 HOURS IVPB 07/14/19 09:00 07/21/19 08:59 07/18/19 10:12 Nuria Iqbal MD Jul 18, 2019 10:14
--- NOTE | 2019-07-18 10:43 | Pulmonology Progress Note ---
Assessment/Plan Assessment/Plan IMPRESSION: 1. High suspicion for COVID-19. Results negative x 1. 2. Normoxemia with normal chest x-ray. 3. COPD. 4. Hypertension. 5. Previous CVA. DISCUSSION: At this time, the patient is doing fairly well and does not need oxygen. Agree with empiric antibiotics as per ID. Continue home medications. Hold off on azithromycin or Plaquenil. 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 Send second COVID 19 pcr? Aston Jensen M.D. Subjective ROS Limited/Unobtainable: Yes Interval Events: None new reproted Constitutional: Reports: no symptoms HEENT: Repors: no symptoms Respiratory: Reports: no symptoms Cardiovascular: Reports: no symptoms Gastrointestinal/Abdominal: Reports: no symptoms Musculoskeletal: Denies: pain Allergies: Coded Allergies: No Known Allergies (Unverified , 07/13/19) Objective Last 24 Hour Vital Signs Date Time Temp Pulse Resp B/P (MAP) Pulse Ox O2 Delivery O2 Flow Rate FiO2 07/18/19 10:08 93 126/70 07/18/19 10:02 Room Air 07/18/19 09:00 97.5 93 20 126/70 (88) 95 07/18/19 04:00 97.9 60 16 113/75 (88) 97 07/18/19 04:00 49 07/18/19 00:00 97.7 61 17 135/73 (93) 97 07/18/19 00:00 64 07/17/19 21:00 Room Air 07/17/19 20:18 64 135/74 07/17/19 20:00 59 07/17/19 20:00 96.8 64 17 145/70 (95) 97 07/17/19 16:00 55 07/17/19 16:00 97.2 68 17 140/82 (101) 97 07/17/19 12:00 54 07/17/19 12:00 96.8 69 18 134/76 (95) 98 Intake and Output 07/17/19 07/18/19 19:00 07:00 Output Total 500 ml Balance -500 ml Output Urine Total 500 ml # Voids 6 General Appearance: no acute distress HEENT: normocephalic Respiratory/Chest: chest wall non-tender, lungs clear Cardiovascular: normal peripheral pulses Abdomen: normal bowel sounds Extremities: no edema Neurologic/Psychiatric: alert, responsive Current Medications Medications (Trade) Dose Ordered Sig/Beckie Route PRN Reason Start Time Stop Time Status Last Admin Dose Admin Aspirin (ASA) 325 mg DAILY ORAL 07/14/19 09:00 08/28/19 08:59 07/18/19 10:08 Atorvastatin Calcium (Lipitor) 40 mg BEDTIME ORAL 07/14/19 21:00 10/12/19 20:59 07/17/19 20:18 Carvedilol (Coreg) 50 mg EVERY 12 HOURS ORAL 07/15/19 21:00 08/14/19 20:59 07/18/19 10:08 Cefepime HCl 1 gm/ Dextrose 55 ml @ 110 mls/hr EVERY 12 HOURS IVPB 07/14/19 09:00 07/21/19 08:59 07/18/19 10:12 Aston Jensen MD Jul 18, 2019 10:43
--- NOTE | 2019-07-18 11:11 | NUR ---
RD ASSESSMENT & RECOMMENDATIONS SEE CARE ACTIVITY FOR COMPLETE ASSESSMENT DAILY ESTIMATED NEEDS: Needs based on Pulmonary 71.4 25-30 kcals/kg 6233-0433 total kcals 1-1.5 g protein/kg 71-107 g total protein 25-30 mL/kg 2668-7740 total fluid mLs NUTRITION DIAGNOSIS: Decreased sodium needs r/t liver dysfunction and clinical status as evidenced by elev LFT's and elev Na CURRENT DIET: reg MS chopped PO DIET RECOMMENDATIONS: Low Na diet/ texture per QUALITY ASSURANCE SUPERVISOR FINAL ADDITIONAL RECOMMENDATIONS: 1) Obtain a standing weight as able 2) Add ensure BID 3) QUALITY ASSURANCE SUPERVISOR FINAL eval-> on ms chopped diet
[2019-07-18] MEDS ORDERED: NS 275ml ONE (14:47)
--- NOTE | 2019-07-18 15:28 | NUR ---
CASE MANAGEMENT:REVIEW 07/18/19 SI: PNA. COPD. CHF COVID NEGATIVE X1...2ND TEST PENDING 98.4 67 20 149/69 99% ON RA IS: IV CEFEPIME Q12 COREG PO Q12 LIPITOR PO QHS ASA PO QD : TELEMETRY STATUS DCP: FROM [facility] PLAN: WAITING FOR SECOND COVID 19 RESULTS, IF NEGATIVE WILL DISCHARGE
--- NOTE | 2019-07-18 18:00 | Progress Note ---
DATE: 07/18/2019 SUBJECTIVE: This is a 73-year-old male who came with rule-out COVID, fever, and sepsis. The patient is currently in bed, waiting for second COVID results. PHYSICAL EXAMINATION: VITAL SIGNS: Blood pressure 113/75, pulse 60s, temperature 97.9, saturation 97%. HEENT: NAD. CHEST: Bilateral decreased breath sounds. CARDIOVASCULAR: Regular rhythm. ABDOMEN: Soft. EXTREMITIES: No CCE. NEUROLOGICAL: No focal deficit. LABORATORY DATA: The patient has no labs today. His chemistry is also . Urine is showing negative. First COVID is negative. Waiting for second COVID. ASSESSMENT: 1. Fever. 2. Rule out sepsis. 3. Rule out COVID. 4. Hypertension. 5. Depression. 6. Dementia. PLAN: We will currently continue antibiotic. Continue isolation. Waiting for second COVID. Lang Rosales M.D. DR: Juan JOB#: [id number] CC:
--- NOTE | 2019-07-18 19:45 | NUR ---
HAND-OFF: Report given to Angel/NELA pt in stable condition gets up to use the restroom on his own but knows to call before for assistance.
--- NOTE | 2019-07-18 19:46 | NUR ---
NURSE NOTES: Got report from Betty RONDON. Pt in stable condition. No s/s of distress or discomfort noted. Pt resting in bed comfortably. Bed in low and locked position, call light within reach, bedside table within reach. Continue to monitor.
[2019-07-18] MEDS: Atorvastatin 20mg tab ORAL SCH (21:46)
[2019-07-19] VITALS: BP 140/70
[2019-07-19 04:00] VITALS: BP 148/75
--- NOTE | 2019-07-19 07:30 | NUR ---
HAND-OFF: Report given to Betty RONDON.
[2019-07-19 08:00] VITALS: BP 142/87
[2019-07-19] MEDS: Cefepime HCl 1 GM in D5W 55 ML IVPB SCH (10:20)
[2019-07-19] MEDS: Carvedilol 25mg Tab ORAL SCH ×2 (10:23→10:30)
[2019-07-19 12:00] VITALS: BP 156/74
--- NOTE | 2019-07-19 12:39 | Infectious Diseases Prog Note ---
Assessment/Plan Assessment/Plan A; 1. Pneumonia., COVID19 test: negative 2. CHF. 3. Hypertension. 4. COPD. PLAN: 1. Discontinue cefepime 2. Observe off antibiotic Subjective ROS Limited/Unobtainable: No Constitutional: Reports: no symptoms Respiratory: Reports: no symptoms Cardiovascular: Reports: no symptoms Gastrointestinal/Abdominal: Reports: no symptoms Genitourinary: Reports: no symptoms Allergies: Coded Allergies: No Known Allergies (Unverified , 07/13/19) Objective Vital Signs Last 24 Hour Vital Signs Date Time Temp Pulse Resp B/P (MAP) Pulse Ox O2 Delivery O2 Flow Rate FiO2 07/19/19 10:30 50 142/87 07/19/19 10:23 142 07/19/19 08:00 64 07/19/19 08:00 97.8 51 20 142/87 (105) 98 07/19/19 04:00 57 07/19/19 04:00 97.9 66 19 148/75 (99) 98 07/19/19 00:00 97.5 58 20 140/70 (93) 97 07/19/19 00:00 52 07/18/19 21:47 60 142/75 07/18/19 21:00 Room Air 07/18/19 20:00 97.1 60 20 142/75 (97) 96 07/18/19 20:00 60 07/18/19 16:00 49 07/18/19 16:00 98.2 65 20 139/63 (88) 99 Height (Feet): 6 Height (Inches): 2.00 Weight (Pounds): 157 General Appearance: no acute distress HEENT: mucous membranes moist Respiratory/Chest: lungs clear Cardiovascular: bradycardia Abdomen: soft, non tender Extremities: no edema Neurologic/Psychiatric: alert, oriented x 3, responsive Current Medications Medications (Trade) Dose Ordered Sig/Beckie Route PRN Reason Start Time Stop Time Status Last Admin Dose Admin Aspirin (ASA) 325 mg DAILY ORAL 07/14/19 09:00 08/28/19 08:59 07/19/19 10:20 Atorvastatin Calcium (Lipitor) 40 mg BEDTIME ORAL 07/14/19 21:00 10/12/19 20:59 07/18/19 21:46 Carvedilol (Coreg) 50 mg EVERY 12 HOURS ORAL 07/15/19 21:00 08/14/19 20:59 07/19/19 10:23 Cefepime HCl 1 gm/ Dextrose 55 ml @ 110 mls/hr EVERY 12 HOURS IVPB 07/14/19 09:00 07/19/19 23:59 07/19/19 10:20 Vineet Farley MD Jul 19, 2019 12:39
--- NOTE | 2019-07-19 13:00 | NUR ---
NURSE NOTES: Pt Hr is on the lows 50's doctor Tamra is aware. He is also aware BP meds were not given today. He did not want to put any parameters for BP meds. Also doctor was notified pt BP was 156/74 around mid day and no new BP PRN orders were Given. Per doctor Tamra, once we get second covid negative result pt is ok to go back to SNF with home meds.
--- NOTE | 2019-07-19 13:46 | Pulmonology Progress Note ---
Assessment/Plan Assessment/Plan IMPRESSION: 1. High suspicion for COVID-19. Results negative x 1. 2. Normoxemia with normal chest x-ray. 3. COPD. 4. Hypertension. 5. Previous CVA. DISCUSSION: At this time, the patient is doing fairly well and does not need oxygen. Agree with empiric antibiotics as per ID. Continue home medications. Hold off on azithromycin or Plaquenil. 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 Send second COVID 19 pcr? Aston Jensen M.D. Subjective ROS Limited/Unobtainable: No Interval Events: None new reproted Constitutional: Reports: no symptoms HEENT: Repors: no symptoms Respiratory: Reports: no symptoms Cardiovascular: Reports: no symptoms Gastrointestinal/Abdominal: Reports: no symptoms Musculoskeletal: Denies: pain Allergies: Coded Allergies: No Known Allergies (Unverified , 07/13/19) Objective Last 24 Hour Vital Signs Date Time Temp Pulse Resp B/P (MAP) Pulse Ox O2 Delivery O2 Flow Rate FiO2 07/19/19 12:00 97.1 46 20 156/74 (101) 99 07/19/19 12:00 49 07/19/19 10:30 50 142/87 07/19/19 10:23 142 07/19/19 09:00 Room Air 07/19/19 08:00 64 07/19/19 08:00 97.8 51 20 142/87 (105) 98 07/19/19 04:00 57 07/19/19 04:00 97.9 66 19 148/75 (99) 98 07/19/19 00:00 97.5 58 20 140/70 (93) 97 07/19/19 00:00 52 07/18/19 21:47 60 142/75 07/18/19 21:00 Room Air 07/18/19 20:00 97.1 60 20 142/75 (97) 96 07/18/19 20:00 60 07/18/19 16:00 49 07/18/19 16:00 98.2 65 20 139/63 (88) 99 Intake and Output 07/18/19 07/19/19 19:00 07:00 # Voids 2 2 General Appearance: no acute distress HEENT: mucous membranes moist Respiratory/Chest: chest wall non-tender, lungs clear Cardiovascular: normal peripheral pulses Abdomen: soft, non tender Extremities: no edema Neurologic/Psychiatric: alert, oriented x 3, responsive Current Medications Medications (Trade) Dose Ordered Sig/Beckie Route PRN Reason Start Time Stop Time Status Last Admin Dose Admin Aspirin (ASA) 325 mg DAILY ORAL 07/14/19 09:00 08/28/19 08:59 07/19/19 10:20 Atorvastatin Calcium (Lipitor) 40 mg BEDTIME ORAL 07/14/19 21:00 10/12/19 20:59 07/18/19 21:46 Carvedilol (Coreg) 50 mg EVERY 12 HOURS ORAL 07/15/19 21:00 08/14/19 20:59 07/19/19 10:23 Aston Jensen MD Jul 19, 2019 13:46
[2019-07-19 16:00] VITALS: BP 151/77
--- NOTE | 2019-07-19 19:45 | NUR ---
HAND-OFF: Report given to Sudhakar/NELA pt in stable condition HR goes down to low 50's doctor Tamra is aware that BP meds were not given today. He did not want to put any parameters for BP meds. Also doctor was notified pt BP was 156/74 around mid day and no new BP PRN orders were Given. Per doctor Tamra, once we get second covid negative result pt is ok to go back to SNF with home meds.
--- NOTE | 2019-07-19 19:46 | NUR ---
NURSE NOTES: Got report from Betty RONDON. Pt in stable condition. Denies any pain. Denies any n/v or SOB. No s/s of distress or discomfort noted. Pt resting in bed comfortably. Bed in low and locked position, call light within reach, bedside table within reach. Continue to monitor.
[2019-07-19 20:00] VITALS: BP 129/69
[2019-07-19] MEDS: Atorvastatin 20mg tab ORAL SCH (20:33)
[2019-07-20] VITALS: BP 118/70
[2019-07-20 04:00] VITALS: BP 122/70
--- NOTE | 2019-07-20 05:45 | Progress Note ---
DATE: 07/19/2019 SUBJECTIVE: This is an elderly male who came and admitted for fever and sepsis for COVID positive. Patient is currently doing fine. No distress. PHYSICAL EXAMINATION: VITAL SIGNS: Stable. HEENT: NAD. CHEST: Bilateral few crackles. CARDIOVASCULAR: Irregular rhythm. No gallop. No murmur. ABDOMEN: Soft. Positive bowel sounds. Nontender. EXTREMITIES: There is CCE. NEUROLOGICAL: The patient has generalized weakness. ASSESSMENT: 1. Fever, rule out sepsis. 2. Acute bronchitis. 3. COVID positive, patient is waiting for second test of COVID. PLAN: Discontinue plan if COVID is negative. Lang Rosales M.D. DR: JOSE L JOB#: [id number] CC:
--- NOTE | 2019-07-20 07:43 | NUR ---
HAND-OFF: Report given to Nel RONDON.
[2019-07-20 08:00] VITALS: BP 154/51
--- NOTE | 2019-07-20 08:00 | NUR ---
NURSE NOTES: Patient stable AOx2 with no complaints of pain and no s/sx of distress. RR even and unlabored on RA. Side rails upx2, call light within reach, bed low and locked. Will continue to monitor.
[2019-07-20] MEDS: Carvedilol 25mg Tab ORAL SCH (10:14)
--- NOTE | 2019-07-20 10:54 | Infectious Diseases Prog Note ---
Assessment/Plan Assessment/Plan antibiotics : none A 1. pneumonia s/p rx COVID-19 negative x 2, 4.17.20, 4.21.20 2. CHF. 3. Hypertension. 4. COPD. P 1. continue off antibiotics 2. d/c isolation 3. will follow up cultures Subjective ROS Limited/Unobtainable: Yes Allergies: Coded Allergies: No Known Allergies (Unverified , 07/13/19) Objective Vital Signs Last 24 Hour Vital Signs Date Time Temp Pulse Resp B/P (MAP) Pulse Ox O2 Delivery O2 Flow Rate FiO2 07/20/19 10:14 60 184/56 07/20/19 04:00 49 07/20/19 04:00 97.4 68 20 122/70 (87) 95 07/20/19 00:00 97.2 80 20 118/70 (86) 96 07/20/19 00:00 59 07/19/19 21:00 Room Air 07/19/19 20:00 86 07/19/19 20:00 97.5 67 20 129/69 (89) 97 07/19/19 16:00 86 07/19/19 16:00 98.1 50 20 151/77 (101) 98 07/19/19 12:00 97.1 46 20 156/74 (101) 99 07/19/19 12:00 49 Height (Feet): 6 Height (Inches): 2.00 Weight (Pounds): 157 Microbiology Date/Time Source Procedure Growth Status 07/17/19 20:30 Nasopharynx Coronavirus COVID-19 PCR (TODD) - Final Complete Current Medications Medications (Trade) Dose Ordered Sig/Beckie Route PRN Reason Start Time Stop Time Status Last Admin Dose Admin Aspirin (ASA) 325 mg DAILY ORAL 07/14/19 09:00 08/28/19 08:59 07/20/19 10:14 Atorvastatin Calcium (Lipitor) 40 mg BEDTIME ORAL 07/14/19 21:00 10/12/19 20:59 07/19/19 20:33 Carvedilol (Coreg) 50 mg EVERY 12 HOURS ORAL 07/15/19 21:00 08/14/19 20:59 07/20/19 10:14 Nuria Iqbal MD Jul 20, 2019 10:54
--- NOTE | 2019-07-20 11:02 | NUR ---
DISCHARGE PLANNING 2ND COVID RESULTED AND FAXED TO [facility] PATIENT CAN DISCHARGE BACK TO SNF TODAY ROOM~ OBSERVATION SKILLED
--- NOTE | 2019-07-20 11:23 | Pulmonology Progress Note ---
Assessment/Plan Assessment/Plan IMPRESSION: 1. High suspicion for COVID-19. Results negative x 1. 2. Normoxemia with normal chest x-ray. 3. COPD. 4. Hypertension. 5. Previous CVA. DISCUSSION: At this time, the patient is doing fairly well and does not need oxygen. Agree with empiric antibiotics as per ID. Continue home medications. Hold off on azithromycin or Plaquenil. 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 Send second COVID 19 pcr? Aston Jensen M.D. Subjective ROS Limited/Unobtainable: Yes Interval Events: None new reproted Constitutional: Reports: no symptoms HEENT: Repors: no symptoms Respiratory: Reports: no symptoms Cardiovascular: Reports: no symptoms Gastrointestinal/Abdominal: Reports: no symptoms Musculoskeletal: Denies: pain Allergies: Coded Allergies: No Known Allergies (Unverified , 07/13/19) Objective Last 24 Hour Vital Signs Date Time Temp Pulse Resp B/P (MAP) Pulse Ox O2 Delivery O2 Flow Rate FiO2 07/20/19 10:14 60 184/56 07/20/19 04:00 49 07/20/19 04:00 97.4 68 20 122/70 (87) 95 07/20/19 00:00 97.2 80 20 118/70 (86) 96 07/20/19 00:00 59 07/19/19 21:00 Room Air 07/19/19 20:00 86 07/19/19 20:00 97.5 67 20 129/69 (89) 97 07/19/19 16:00 86 07/19/19 16:00 98.1 50 20 151/77 (101) 98 07/19/19 12:00 97.1 46 20 156/74 (101) 99 07/19/19 12:00 49 Intake and Output 07/19/19 07/20/19 19:00 07:00 Intake Total 600 ml Balance 600 ml Intake Oral 600 ml # Voids 4 3 General Appearance: no acute distress HEENT: mucous membranes moist Respiratory/Chest: chest wall non-tender, lungs clear Cardiovascular: normal peripheral pulses Abdomen: soft, non tender Extremities: no edema Neurologic/Psychiatric: alert, oriented x 3, responsive Microbiology Date/Time Source Procedure Growth Status 07/17/19 20:30 Nasopharynx Coronavirus COVID-19 PCR (TODD) - Final Complete Current Medications Medications (Trade) Dose Ordered Sig/Beckie Route PRN Reason Start Time Stop Time Status Last Admin Dose Admin Aspirin (ASA) 325 mg DAILY ORAL 07/14/19 09:00 08/28/19 08:59 07/20/19 10:14 Atorvastatin Calcium (Lipitor) 40 mg BEDTIME ORAL 07/14/19 21:00 10/12/19 20:59 07/19/19 20:33 Carvedilol (Coreg) 50 mg EVERY 12 HOURS ORAL 07/15/19 21:00 08/14/19 20:59 07/20/19 10:14 Aston Jensen MD Jul 20, 2019 11:23
--- NOTE | 2019-07-20 11:34 | NUR ---
*-*DISCHARGE PLANNED*-* PATIENT HAS BEEN ACCEPTED AND WILL BE DISCHARGED BACK TO: [facility] P: [phone] FOR NURSE TO NURSE REPORT ROOM# OBSERVATION ROOM [facility] SET FOR 1PM/1300PM S/W MAO [id number] S/W PATIENTS SISTER, FANTA SAAVEDRA, WHO IE IN AGREEMENT WITH DISCHARGE Addendum: 07/20/19 at 1145 by BAKARI CALHOUN CM *-*DISCHARGE PLANNED*-* PATIENT HAS BEEN ACCEPTED AND WILL BE DISCHARGED BACK TO: [facility] P: [phone] FOR NURSE TO NURSE REPORT ROOM# OBSERVATION ROOM SKILLED [facility] SET FOR 1PM/1300PM S/W MAO [id number] S/W PATIENTS SISTER, FANTA QUENTIN, WHO IS IN AGREEMENT WITH DISCHARGE
[2019-07-20 12:00] VITALS: BP 137/67
--- NOTE | 2019-07-20 14:00 | NUR ---
NURSE NOTES: Patient discharged. Patient stable. No belongings. Report given to [facility]. IVs and radiation monitor d/ch. Patient wearing glassess.
--- NOTE | 2019-07-20 19:00 | NUR ---
NURSE NOTES: Patient discharged. Patient stable. No belongings. Report given to yao alvarado. IVs and library monitor d/ch Addendum: 07/20/19 at 2024 by OMAR SALAMANCA RN DISREGARD DOCUMENTATION. INCORRECT PATIENT.
--- NOTE | 2019-07-21 01:00 | Progress Note ---
DATE: 07/20/2019 SUBJECTIVE: This is an elderly male, currently awake, comfortable, doing fine. PHYSICAL EXAMINATION: VITAL SIGNS: Blood pressure is 130/70, pulse 74, respirations 18. HEENT: NAD. CHEST: Bilaterally clear. CARDIOVASCULAR: Irregular rhythm. No gallop. No murmur. ABDOMEN: Soft. Positive bowel sounds and nontender. EXTREMITIES: CCE. NEUROLOGICAL: The patient is in no focal deficit. GENITOURINARY: Deferred. LABORATORY AND DIAGNOSTIC DATA: The patient has no labs today. HOSPITAL COURSE: The patient was admitted to rule out COVID. The patient is COVID negative. The patient also had fever and was treated with IV antibiotics and pulmonary treatments. The patient has clinically improved. He is going to go back to longterm. DISCHARGE DIAGNOSES: 1. Fever. 2. Acute bronchitis. 3. Ruled out COVID. 4. Hypertension. DIET: He is on 2 grams sodium diet. ACTIVITY: The patient is able to to walk with minimum assistance. Lang Rosales M.D. DR: Lisa JOB#: [id number] CC:
== END 2019-07-20 15:53 | DRG 871 ==
LOC: EDBD 20:51 → EMR 21:47 → 2E 21:55 → EDBEDREQ 22:52
DX: A41.9 Sepsis, unspecified organism (principal); J18.9 Pneumonia, unspecified organism; J44.9 Chronic obstructive pulmonary disease, unspecified; I11.0 Hypertensive heart disease with heart failure; I50.9 Heart failure, unspecified; E78.5 Hyperlipidemia, unspecified; F32.9 Major depressive disorder, single episode, unspecified; Z86.73 Personal history of transient ischemic attack (TIA), and cerebral infarction without residual deficits
CPT/HCPCS: 36415; 71045; 80048; 80053; 81003; 83605; 83880; 84484; 85025; 86710; 87040; 87081; 87635; 93005; 96365; 96367; 96375; 99285